=== PATIENT | female | born 1950 | race African-American/Black ===

== ENCOUNTER → 2017-08-03 | Outpatient (CLI) | payer MEDICARE, BC ==
[2015-11-07 13:00] VITALS: BP 128/62
[~2017-08-03] MED LIST: ACET-704 PO; ALPR0.5T6 PO; ATOR10TA60 PO; GLIM4TAB2 PO; HYDR12.53 PO; MELO15TA23 PO; METF500T4 PO; OLME20TA19 PO
== END | disposition home or self-care (01) ==
LOC: SURGPAT 13:21
PROVIDERS: ATTEND Orthopaedic Surgery
DX: Z01.818 Encounter for other preprocedural examination (principal); M75.101 Unspecified rotator cuff tear or rupture of right shoulder, not specified as traumatic; E55.9 Vitamin D deficiency, unspecified
CPT/HCPCS: 36415; 82306; 85730